=== PATIENT | male | born 1950 | race Caucasian/White ===

== ENCOUNTER 2024-01-29 13:58 | Emergency (ER) | payer OTHER, SELFPAY ==
[2024-01-29] VITALS (7 sets, daily range): BP systolic 137–173; BP diastolic 83–106; BMI 28.2
[2024-01-29 14:19] LABS: % Basophils 0.7 % (0-2); % Eosinophils 6.6 % (0-6); % Immature Granulocytes 1.1 % (0-0.5); % Lymphocytes 27.1 % (20.5-51.1); % Monocytes 5.4 % (1.7-9.3); % Neutrophils 59.1 % (42.2-75.2); Absolute Basophils 0.1 10^3/uL (0-0.2); Absolute Eosinophils 0.5 10^3/uL (0-0.7); Absolute Immature Granulocytes 0.1 10^3/uL (0-0.05); Absolute Lymphocytes 2.1 10^3/uL (1.2-3.4); Absolute Monocytes 0.4 10^3/uL (0.1-0.6); Absolute Neutrophils 4.5 10^3/uL (1.4-6.5); Hematocrit 41.5 % (39.0-52.0); Hemoglobin 15.2 g/dL (13.0-18.0); Mean Corp Hgb Conc. 36.6 g/dL (33.0-37.0); Mean Corpuscular Volume 84.5 fL (80.0-94.0); Mean Platelet Volume 9.9 fL (7.4-10.4); Nucleated Red Blood Cells % 0 % (-); Platelet Count 187 10^3/uL (130-400); Red Blood Cell Count 4.91 10^6/uL (4.70-6.10); Red Cell Dist. Width 13.2 % (11.5-14.5); White Blood Cell Count 7.6 10^3/uL (4.8-10.8)
[2024-01-29 14:30] LABS: ALT (SGPT) 16 U/L (0-50); AST (SGOT) 27 U/L (17-59); Albumin 4.7 g/dl (3.5-5.0); Alkaline Phosphatase 67 U/L (38-126); Blood Urea Nitrogen 16 mg/dl (9-20); Carbon Dioxide 25 mmol/L (22-30); Chloride 105 mmol/L (98-107); Glucose 99 mg/dl (70-99); Potassium 4.3 mmol/L (3.5-5.1); Sodium 139 mmol/L (135-145); Total Bilirubin 1.1 mg/dl (0.2-1.3); Total Protein 7.8 g/dl (6.3-8.2); eGFR > 60.00
[2024-01-29 18:53] LABS: D-Dimer 0.39 ug/mlFEU (0.00-0.50)
[2024-01-29 19:48] LABS: NT-proBNP 134 pg/ml
--- NOTE | 2024-01-29 20:00 | ED.GENMED ---
History of Present Illness
General
Chief Complaint: Breathing Problem
Source: patient and spouse
Exam Limitations: none
Time Seen by Provider: 01/29/24 16:14
Nursing documentation reviewed up to this point in time: agreed with
History of Present Illness
History of Present Illness:
Patient presents to ED secondary to intermittent episodes of shortness of breath with exertion, when walking up the stairs over the past 2 days. Denies chest pain. Denies diaphoresis. Denies dizziness. Of note, however, patient has had ongoing
intermittent shortness of breath over the past 2 years, which has been evaluated extensively with his primary care physician as well as mamma logist at [facility]. Patient reports having received normal pulmonary function test, but
secondary to intermittent cough along with 'wheezing', has been recommended by his mamma logist to continue inhaler treatment twice daily at home. Denies fever or chills. Patient still reports intermittent cough. Denies nausea or vomiting.
Denies change in appetite. Denies leg pain or swelling. Denies back pain. Denies recent travel or surgery. Denies sick contact. Denies weight loss. At the time of evaluation ED, patient has no complaints. In addition, patient states that he
has been evaluated by senior technical support engineer 2 years ago, secondary to intermittent episodes of sweaty hands as well as coughing. Patient received normal echocardiogram. In addition, outpatient testing had revealed high calcium score, but his senior technical support engineer
informed him that he did not need any acute intervention, but can be watched over time.
Past History
Past History
ED Past Medical History: None
ED Past Surgical History: Orthopedic and Other (hernia)
Social History
Tobacco: Non-smoker
Personal:
Living: with family
Review of Systems
Review of Systems
Allergies reviewed?: Yes
All Other Systems: ROS reviewed and negative except as documented in HPI and ROS
Constitutional: Reports no symptoms
Respiratory: Reports cough and trouble breathing
Cardiac: Reports no symptoms; Denies chest pain or diaphoresis
ABD/GI: Reports no symptoms
: Reports no symptoms
Musculoskeletal: Reports no symptoms
Skin: Reports no symptoms
Neurological: Reports no symptoms
Phy Exam
Physical Exam
Physical Exam:
Physical Exam
General: no apparent distress, not acutely ill. afebrile
Head: nc/at. eomi
Neck: supple. no meningeal signs.
Heart: s1/s2 regular rate and rhythm, no murmur. equal radial pulses.
Lungs: no acute respiratory distress. clear bilaterally
Abdomen: normal bowel sounds. not tender.
Neuro: alert and oriented. no focal neurological deficits
Skin: no rash
Psychiatric: well kept. interactive and cooperative
Extremities: no edema. no calf tenderness.
Scores
Heart Failure Risk
Heart Failure Risk Score: Not Applicable
Course
Orders/Labs/Results
Orders:
Orders
01/29/24 14:02
Electrocardiogram (*1) Urgent
Reason for Study: Shortness of Breath
01/29/24 14:03
EKG- Treatment ONCE
01/29/24 14:11
Complete Blood Count/With Diff Urgent
Comprehensive Metabolic Panel Urgent
NT-proBNP Urgent
Comment: ADD ON
01/29/24 18:33
D-Dimer Urgent
01/29/24 18:55
Add On- LAB Urgent
Tests Added?: pro-bnp
01/29/24 20:18
Add On- LAB Urgent
Tests Added?: troponin
Abnormal Lab Results
01/29/24
14:11
Abs Immat Gran (auto) 0.1 H 10^3/uL
(0-0.05)
Immature Gran % 1.1 H %
(0-0.5)
Eosinophils % 6.6 H %
(0-6)
01/29/24 14:11
01/29/24 14:11
Vital Signs
Initial and Last Documented VS:
Initial Vital Signs
Temp Pulse Resp BP Pulse Ox
98.2 F 72 16 141/103 98
01/29/24 14:00 01/29/24 14:00 01/29/24 14:00 01/29/24 14:00 01/29/24 14:00
Last Documented Vital Signs
Temp Pulse Resp BP Pulse Ox
98.2 F 58 23 173/83 92
01/29/24 14:00 01/29/24 20:20 01/29/24 17:00 01/29/24 20:20 01/29/24 20:20
MDM/Problems Addressed
MDM/Problems Addressed:
Patient remains asymptomatic during prolonged observation, along with unremarkable workup, including D-dimer. History and exam consistent with nonspecific dyspnea on exertion, without clear etiology behind his symptoms. Patient was able to
ambulate with steady gait, without any respiratory distress nor hypoxia. As such, decision made to discharge patient home at this time, to the care of his family, where he will follow-up with his mamma logist as well as senior technical support engineer as an
outpatient. In the meantime, advised patient to refrain from going up and down the stairs, or return to ED with worsening symptoms.
*Critical Care Note
Total Time (30-74mins, 75-104mins- exclusive of procedures): Not Applicable
ED Attending Note
-
Portions of this chart may have been created with voice recognition software.� Occasional wrong word or��sound alike� substitutions may have occurred due to the inherent limitations of voice recognition software.
Discharge Plan
Departure
Patient Disposition: Home (Routine Discharge)
Date of Disposition: 01/29/24
Time of Disposition: 20:00
Patient with high blood pressure during this ER visit?: Yes
Condition: Good
Discharge Problem:
Dyspnea
Instructions: Shortness of Breath (Dyspnea) (DC)
Prescriptions:
New
prednisone 50 mg tablet
50 mg PO DAILY Qty: 3 0RF
Referrals:
Thaddeus Sanchez MD [Family Provider] -
Juan Pablo Silva MD [Active] -
Activity Restrictions/Additional Instructions:
As discussed, please follow up with your mamma logist/senior technical support engineer for further evaluation and treatment. Please return to ED with worsening symptoms. Your prescription has been sent electronically to [facility] pharmacy in [place].
Interventions
Interventions:
*Risk Screen - Suicide Last Done: 01/29/24 16:26
*General Assessment Last Done: 01/29/24 16:26
*Neglect/Abuse Screening Last Done: 01/29/24 16:26
*Nursing Disposition Last Done: 01/29/24 20:25
ED- Cardiac Assessment Last Done: 01/29/24 16:26
ED- Pulmonary Assessment Last Done: 01/29/24 16:26
Discharge Date and Time
Discharge Date/Time: 01/29/24 20:25
Print Language: WELSH
== END 2024-01-29 20:25 | disposition home or self-care (01) ==
LOC: EMR 13:58
PROVIDERS: Emergency Medicine; EMERGENCY PHYSICIAN Emergency Medicine; FAMILY PHYSICIAN Family Medicine
DX: R06.00 Dyspnea, unspecified (principal)
CPT/HCPCS: 99283; 80053; 83880; 85025; 85379; 93005

== ENCOUNTER → 2024-02-21 07:01 | Outpatient (REF) | payer OTHER, SELFPAY | LOC: HWRCS 07:01 | PROVIDERS: ATTENDING PHYSICIAN Internal Medicine Interventional Cardiology; FAMILY PHYSICIAN Family Medicine | DX: I34.0 Nonrheumatic mitral (valve) insufficiency (principal); I34.89 Other nonrheumatic mitral valve disorders | CPT/HCPCS: 93306 ==

== ENCOUNTER → 2024-02-22 07:06 | Outpatient (REF) | payer OTHER, SELFPAY | LOC: DHCBC/DCA 07:06 | PROVIDERS: ATTENDING PHYSICIAN Internal Medicine Interventional Cardiology; FAMILY PHYSICIAN Family Medicine | DX: I34.0 Nonrheumatic mitral (valve) insufficiency (principal); I34.89 Other nonrheumatic mitral valve disorders | CPT/HCPCS: 78452; 93017; A9500 ==

== ENCOUNTER → 2024-08-05 12:06 | Outpatient (REF) | payer OTHER, SELFPAY | LOC: HWRAD 12:06 | PROVIDERS: ATTENDING PHYSICIAN Internal Medicine Critical Care Medicine | DX: R91.8 Other nonspecific abnormal finding of lung field (principal); R93.89 Abnormal findings on diagnostic imaging of other specified body structures | CPT/HCPCS: 71250 ==

== ENCOUNTER → 2024-09-25 06:52 | Outpatient (REF) | payer OTHER, SELFPAY | LOC: HWRAD 06:52 | PROVIDERS: ATTENDING PHYSICIAN Internal Medicine; FAMILY PHYSICIAN Internal Medicine | DX: K76.0 Fatty (change of) liver, not elsewhere classified (principal) | CPT/HCPCS: 76700 ==

== ENCOUNTER → 2024-10-18 06:48 | Outpatient (REF) | payer OTHER, SELFPAY | LOC: HWRAD 06:48 | PROVIDERS: ATTENDING PHYSICIAN Specialist; FAMILY PHYSICIAN Internal Medicine; REFERRING PHYSICIAN Internal Medicine | DX: Q61.02 Congenital multiple renal cysts (principal) | CPT/HCPCS: 76775 ==